=== PATIENT | female | born 1975 | race Two or more races ===

== ENCOUNTER 2025-05-16 08:26 | Outpatient (AMB) | payer OTHER, SELFPAY ==
--- NOTE | 2025-05-16 08:30 | MHC.OFFVIS ---
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 Last co testing was many years ago, last mammogram was more than 3 years ago. 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 [employer] Sexually active: No Sexual orientation: Straight/Heterosexual Gender identity: Female Female Reproductive History Menstrual Date of last menstrual period: 03/26/25 control method: implanted Total pregnancies: 2 Full term: 1 Number of Living Children: 1 Ab spontaneous: 1 Review of Systems Const All systems reviewed & are unremarkable except as noted in HPI and below Card Reports as per HPI Resp Reports as per HPI GI Reports as per HPI and Reports no additional complaints Reports as per HPI Physical Exam Vital Signs: Last Vital Signs BP 144/92 H 05/16/25 08:37 BMI result Body Mass Index 34.3 Const General: cooperative, healthy appearing and comfortable Chest Chest palpation & inspection: normal inspection of the chest and normal palpation of entire chest wall Breast/axilla inspection: normal inspection of the breasts and normal inspection of the axillae Breast/axilla palpation: normal palpation of the breasts, normal palpation of the axillae and no axillary lymphadenopathy Resp Effort & Inspection: normal respiratory effort Auscultation: clear to auscultation bilaterally Percussion: percussion normal Cardio Palpation: normal PMI Rate: regular rate Rhythm: regular rhythm Heart sounds: no murmurs and no rubs Peripheral pulses: Peripheral pulses 2+ throughout GI Inspection: Yes normal to inspection Palpation (GI): Soft to palpation, nontender, no guarding, not rigid and No hepatosplenomegaly present Percussion: Yes normal to percussion Auscultation: normal bowel sounds Rectal Exam - Female: deferred General: Yes bladder normal to palpation External Female Exam: No lesion Speculum Exam - Vagina: normal appearance of the vagina, normal palpation, normal vaginal discharge and not erythematous Speculum Exam - Cervix: normal appearance of the cervix and normal palpation Bimanual exam- vagina & uterus: normal bimanual exam, normal palpation, uterine size normal, bladder normal to palpation, consistency normal and normal palpation Bimanual Exam- Adnexa, other: normal adnexae, no masses and no tenderness Office Procedures Endometrial Biopsy Details: The patient was counseled regarding the indication and benefits of endometrial sampling to rule out endometrial pathology including not limited to endometrial hyperplasia or endometrial cancer and others; The alternatives (Either do nothing vs. hysteroscopy D&C) & the risks were discussed with the patient including but not limited: pain, uterine perforation, bleeding, infection, possible injury to bladder, bowel, ureter, possible need for blood transfusion with all its possible risks. The patient verbalized understanding all questions answered and signed consent. Urine test done in the office was negative The patient was placed into the dorsal lithotomy position; a speculum was inserted in the vagina. Using aseptic technique for the procedure, the cervix was cleansed with Betadine. The anterior lip of the cervix was grasped with a single tooth tenaculum. The uterus was sounded to 7 cm with a 4 mm Pipelle was used. Tissues samples were obtained and placed in formalin, in a patient labeled container and sent to the pathology department. At the end of the procedure, there was minimal bleeding noted The patient tolerated the procedure well and was discharged in good condition with the following instructions: Nothing in the vagina until the bleeding stops. No sex until the bleeding stops, to call if any of the following occurs: fever (>100.4), flu-like symptoms, abdominal pain, heavy bleeding, four smelling vaginal discharge. The patient was instructed to schedule a Follow up appointment in 2 weeks to discuss pathology results of the biopsy and treatment options. This note was generated with a voice recognition program. Some errors may have been overlooked during the review of this note. Sometimes these errors may affect the content or meaning of a given sentence. 06876-Tuximavdvvd Biopsy Results AMB Test Urine AMB Test Urine Negative Last Edit by Gabby Armendariz CMA on 05/16/25 08:56 Assessment & Plan Assessment & Plan (1) Abnormal uterine bleeding (AUB): Code(s): N93.9 - Abnormal uterine and vaginal bleeding, unspecified Category: Medical Plan: UPT done in the office was negative. Screening mammogram, Co testing done, GC and chlamydia taken CBC, TSH, HCG, FSH/LH and pelvic ultrasound ordered. Discussed with the patient the different causes of abnormal bleeding including thyroid disorders, uterine and ovarian pathology, endometrial hyperplasia, carcinoma and other potential causes. Discussed with the patient the work up including CBC (to r/o anemia), TSH, FSH/LH, pelvic Ultrasound, endometrial biopsy to r/o endometrial pathology. EMB done, see procedure note. All questions answered and the patient verbalized understanding. Instructed the patient to schedule an appointment for an endometrial biopsy in 2 weeks. (2) Chest pain: Code(s): R07.9 - Chest pain, unspecified Category: Medical Plan: Recommended the patient to go to [facility]. All questions answered, the patient agreed with the plan Orders: Orders AMB HCG Urine Test Today Z32.02 - Encounter for test, result negative US pelvic and transvaginal Today N93.9 - Abnormal uterine and vaginal bleeding, unspecified MM screening mammo BI Today Z12.31 - Encounter for screening mammogram for malignant neoplasm of breast Complete Blood Count no Diff Today N93.9 - Abnormal uterine and vaginal bleeding, unspecified Lutenizing Hormone Today N93.9 - Abnormal uterine and vaginal bleeding, unspecified HCG Quantitative Today N93.9 - Abnormal uterine and vaginal bleeding, unspecified TSH reflex Free T4 Today N93.9 - Abnormal uterine and vaginal bleeding, unspecified AMB Endometrial Biopsy Today N93.9 - Abnormal uterine and vaginal bleeding, unspecified Follicle Stimulating Hormone Today N93.9 - Abnormal uterine and vaginal bleeding, unspecified Coding Level of Care Code New Pt Level 3 (61758) Procedure Only Diagnoses Abnormal uterine bleeding (AUB) N93.9 Chest pain R07.9 CPT Codes Endometrial Biopsy - CPT: 56575-Hotyiejkovh Biopsy ([id number])
[2025-05-16 08:37] VITALS: BP 144/92; BMI 34.3
--- OUTSIDE RECORDS SUMMARY | 2025-05-16 08:41 | XMS_ITS | Clinical Summary ---
Author Organization [facility] Address [address] [facility] [address] [place] [phone] Phone Care Team Providers Care Cognos Developer Name Role Phone Pcp, Unknown Primary Care Provider Unavailabl e Social History Tobacco Use Types Packs/Day Years Used Date Smoking Tobacco: Never Assessed Education Answer Date Recorded Are you interested in more education? Not on robert e 05/03/2025 Are you concerned about learning? Not on file 05/03/2025 No 05/03/2025 No 05/03/2025 Digital Access Answer Date Recorded No 05/03/2025 No 05/03/2025 Reliable internet access at home? Not on file 05/03/2025 Device with a working camera? Not on file Comments Unknown Sex and Gender Information Value Date Recorded Sex Assigned at Not on file Legal Sex Female 12:55 AM EDT Gender Identity Not on file Sexual Orientation Not on file Plan of Treatment Upcoming Encounters Date Type Department Care Team (Late st Contact Info) Description 05/17/2025 11:20 AM EDT Office Visit [facility] [address] [place] [address] [place] [address] Mihaela Zeng MD [address] [facility], [address] [place] [address] [email or web address] Health Maintenance Due Date Last Done Comments Adult Td,Tdap Booster 1977 LIPID PANEL 1977 DEPRESSION SCREENING 1989 SMOKING Hx and SMOKELESS TOB ACCO SCREENING 1990 HEPATITIS C SCREENING 1995 HIV ONE-TIME SCREENING (18-6 5 YEARS) 1995 PAP SMEAR 1998 MAMMOGRAM 2017 COLOGUARD 2022 COLONOSCOPY 2022 COLORECTAL CANCER SCREENING 2022 FIT TEST 2022 FOBT 2022 SIGMOIDOSCOPY 2022 VIRTUAL COLONOSCOPY 2022 INFLUENZA VACCINE (#1) 2025 COVID-19 VACCINE ( - 2024-2 6 season) 2025 HEPATITIS A VACCINES Aged Out No long er eligible based on patient's age to complete this topic HIB VACCINES Aged Out No longer eligi ble based on patient's age to complete this topic MENINGOCOCCAL VACCINES (ACWY) Aged Out No longer eligible based on patient's age to complete this topic MENINGOCOCCAL VACCINES (B) Aged Out N o longer eligible based on patient's age to complete this topic PNEUMOCOCCAL VACCINES (0-49 years) Aged Out No longer eligible based on patient's age to complete this topic Medical Devices Not on file Insurance Flux [employer] [place] [address] [place] [address] [facility] [address] [place] [address] [place] [place] [address] [place] [address] [place] [address] ACO Care Teams Cognos Developer Relationship Specialty Start Date End Date Pcp, Unknown PCP - General 05/02/25 Additional Source Comments The information contained in this document represents components of the legal health record. It is not the complete legal health record.[facility]
--- OUTSIDE RECORDS SUMMARY | 2025-05-16 08:41 | XMS_ITS | Encounter Summary ---
Author Organization [facility] Address [address] [place] [address] Care Team Providers Care Solar Installer Pv Name Role Phone Evie Garza MD Primary Care Provider [phone] Reason for Visit * Reason Onset Date Comments Vaginal Bleeding 05/02/2025 Encounter Details Date Type Department Care Team (Late st Contact Info) Description 05/02/2025 Telephone Internal Medicine - [place] [address] [place], [place] [phone] Evie Garza MD [address] [place], [place] Social History Tobacco Use Types Packs/Day Years Used Date Smoking Tobacco: Never Smokeless Tobacco: Never Alcohol Use Standard Drinks/Week Comments Never 0 (1 standard drink = 0.6 oz pur e alcohol) Comments No Sex and Gender Information Value Date Recorded Sex Assigned at Female 10/02/2024 10:07 AM EDT Legal Sex Female 12:54 AM EST Gender Identity Female 10/02/2024 10:07 AM EDT Sexual Orientation Straight 10/02/2024 10 :07 AM EDT documented as of this encounter Progress Notes * Chino Grullon - 05/02/2025 12:18 PM EDT Called Patient lvm that she needs to f/u with OBGYN office * Chino Grullon - 05/02/2025 11:40 AM EDT Patient call requires triage: Symptoms patient is presenting: uterine bleeding How long has patient had these symptoms?: over 4 wks For ALL patients calling to schedule any appointment (routine, sick visit, follow up, consult, etc.) in the outpatient setting please ask the following questions: Do you have fever of higher than 101, sore throat with difficulty swallowing or severe shortness ofbreath? no If YES to any of these above symptoms, send a message to triage and do not book. Red dot. If no, an audio or video visit should be booked. Have you had close contact with someone with Coronavirus in the last 14 days? yes Have you traveled abroad? no Have you traveled recently to another state outside of [place], [place], [place], [place], [place], [place], [place]? no o If yes, did you quarantine for 14 days or have a negative covid test? no If yes to any of the above, patient is not to be scheduled in office until after 14 day quarantine or negative covid test. If pain or injury related was it due to an accident at work or from a motor vehicle accident? If yes, date of accident/Injury: No If yes, gather 3rd democrat insurance information Third Alliance Party Information: not applicable PCP: Evie Garza MD Payor: [email or web address] PLAN / Plan: [employer] MEDICAID / Product Type: *No Product type* / documented in this encounter Plan of Treatment Upcoming Encounters Date Type Department Care Team (Late st Contact Info) Description 05/18/2025 3:45 PM EDT [facility] [address] [place] [address] Nidhi Sharma NP [address] [place] [address] 05/25/2025 8:45 AM EDT [facility] [address] [place] [address] Reid Gil NP [address] [place] [address] 10/11/2025 2:30 PM EDT Office Visit Bariatric Surgery - [place] [address] [place] [address] Alin Campos MD [address] [place] [phone] 10/12/2025 8:45 AM EDT Office Visit Internal Medicine - [address] [phone] Reid Gil NP [address] [place] [address] documented as of this encounter Visit Diagnoses Not on filedocumented in this encounter Care Teams Solar Installer Pv Relationship Specialty Start Date End Date Evie Garza MD [address] [place] [address] PCP - General Internal Medicine 09/30/24 documented as of this encounter
--- OUTSIDE RECORDS SUMMARY | 2025-05-16 08:41 | XMS_ITS | Encounter Summary ---
Author Organization [employer] Address [address] [place] [address] Care Team Providers Care Visitor Services Assistant Name Role Phone Evie Garza MD Primary Care Provider [phone] Reason for Visit * Reason Onset Date Comments Vaginal Bleeding 05/02/2025 Encounter Details Date Type Department Care Team (Late st Contact Info) Description 05/02/2025 Telephone Internal Medicine - [facility] [address] [place], [place] [phone] Evie Garza MD [address] [place], [place] Social History Tobacco Use Types Packs/Day [...] as of this encounter Progress Notes * Shelley Jasso, GARRETT - 05/03/2025 8:38 AM EDT noted- I did tell pt this but she insists so I just have to inform you of her situation. 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 she has an obgyne f/up before the end of the month. advised again to go to the ER if having severe / vag.bleed/weakness/light-headedness. she insists she has the right to see her PCP as f/up for bld testing etc. * Shelley Jasso RN - 05/02/2025 1:54 PM EDT Spoke to pt-reports of continued vag. Bleeding since 04/26/25 [facility] ER visit. She states she has reached out to [facility] obgyne clinic and is scheduled for next avail appt in a few mos (nothing earlier). Advised to go back to any ER of choice if vag. bleed persists and is feeling light-headed and weak. RANDAL 04/13/25 * Jerri Esqueda - 05/02/2025 1:35 PM EDT Symptoms patient is presenting: pt c/o continued vaginal bleeding. See previous encounters For ALL patients calling to schedule any appointment (routine, sick visit, follow up, consult, etc.) in the outpatient setting please ask the following questions: Do you have fever of higher than 101, sore throat with difficulty swallowing or severe shortness ofbreath? NO If YES to any of these above symptoms, send a message to triage and do not book. Red dot. If no, an audio or video visit should be booked. Have you had close contact with someone with Coronavirus in the last 14 days? NO Have you traveled abroad? NO Have you traveled recently to another state outside of [place], [place], [place], [place], [place], [place], [place]? NO o If yes, did you quarantine for 14 days or have a negative covid test? NO If yes to any of the above, patient is not to be scheduled in office until after 14 day quarantine or negative covid test. If pain or injury related was it due to an accident at work or from a motor vehicle accident? NO If yes, gather 3rd constitution party insurance information Date of accident/Injury: How long has patient had these symptoms?: on going PCP: Dr Garza Payor: Maribeth documented in this encounter Plan of Treatment Upcoming Encounters Date Type Department Care Team (Late st Contact Info) Description 05/18/2025 3:45 PM EDT [facility] [phone] Nidhi Sharma NP [address] [place] [address] 05/25/2025 8:45 AM EDT Office Visit Internal Medicine - [address] [phone] Reid Gil NP [address] [place] [address] 10/11/2025 2:30 PM EDT Office Visit Bariatric Surgery - [place] [address] [place] [phone] Alin Campos MD [address] [place] [phone] 10/12/2025 8:45 AM EDT Office Visit Internal Medicine - [address] [phone] Reid Gil NP [address] [place] [address] documented as of this encounter Visit Diagnoses Not on filedocumented in this encounter Care Teams Visitor Services Assistant Relationship Specialty Start Date End Date Evie Garza MD [address] [place] [address] PCP - General Internal Medicine 09/30/24 documented as of this encounter
--- OUTSIDE RECORDS SUMMARY | 2025-05-16 08:41 | XMS_ITS | Encounter Summary ---
Author Organization [employer] Address [address] [place] [address] Care Team Providers Care Tire Design Engineer Name Role Phone Evie Garza MD Primary Care Provider [phone] Reason for Visit * Reason Onset Date Comments Vaginal Bleeding 04/27/2025 Encounter Details Date Type Department Care Team (Late st Contact Info) Description 04/27/2025 Telephone Internal Medicine - [facility] [address] [place], [place] [phone] Evie Garza MD [address] [place] [address] Social History Tobacco Use Types Packs/Day Years [...] as of this encounter Progress Notes * Vicenta Bishop RN - 04/27/2025 8:49 AM EDT Message forwarded to CORPORATE STAFF ACCOUNTANT triage * Damaris Siddiqui - 04/27/2025 8:37 AM EDT Patient call requires triage: Symptoms patient is presenting: went to the [facility] er 04/26 pt has been bleeding vaginally for 4 weeks. She was advised to go to the ER where they referred her to an obgyn. However they do not have any availability anytime soon and pt is still actively bleeding and is requesting a treatment from provider here, wants to know what to do next. How long has patient had these symptoms?: 4 weeks For ALL patients calling to schedule any [...] with Coronavirus in the last 14 days? no Have you traveled abroad? no Have you traveled recently to another state outside of [place], [place], [place], [place], [place], [place], [place]? no o If yes, did you quarantine [...] of accident/Injury: No If yes, gather 3rd constitution party insurance information [employer] Party Information: not applicable PCP: Evie Garza MD Payor: [facility] HEALTH PLAN / Plan: [facility] MEDICAID / Product Type: *No Product type* / documented in this encounter Plan of Treatment Upcoming Encounters Date Type Department Care Team (Late st Contact Info) Description 05/18/2025 3:45 PM EDT Office Visit Internal Medicine - [address] [phone] Nidhi Sharma NP [address] [place] [address] 05/25/2025 8:45 AM EDT Office Visit Internal Medicine - [facility] [address] [place] [address] Reid Gil NP [address] [place] [address] 10/11/2025 2:30 PM EDT Office Visit Bariatric Surgery - [place] [address] [place] [phone] Alin Campos MD [address] [place] [phone] 10/12/2025 8:45 AM EDT Office Visit [facility] [phone] Reid Gil NP [address] [place] [phone] documented as of this encounter Visit Diagnoses Not on filedocumented in this encounter Care Teams Tire Design Engineer Relationship Specialty Start Date End Date Evie Garza MD [address] [place] [address] PCP - General Internal Medicine 09/30/24 documented as of this encounter
--- OUTSIDE RECORDS SUMMARY | 2025-05-16 08:41 | XMS_ITS | Clinical Summary ---
Author Organization [facility] Address [address] [place] [address] Phone Care Team Providers Care Diffuser Operator Name Role Phone Evie Garza MD Primary Care Provider [phone] Allergies Active Allergy Reactions Criticality Noted Date Comments Iodinated Contrast Media Anaphylaxis High 09/30/2024 Patient reports throat closing needing shot in thigh (after MRI ) Medications EPINEPHrine (EPIPEN) 0.3 mg/0.3 mL injection ADMINISTER 0.3 MG IN THE MUSCLE 1 TIME 4 Active fluticasone propionate (FLONASE) 50 mcg/actuation nasal spray TAKE 2 SPRAYS (INTRANASAL) DIRECTED FOR 90 DAYS TWICE A DAY FOR 5 DAYS THEN DAILY AFTER 5 Active ibuprofen (ADVIL,MOTRIN) 800 mg tablet TAKE 1 TABLET (ORAL) 3 TIMES PER DAY ( CUANDO SEA NECESARIO - PAIN) FOR 7 DAYS TAKE WITH FOOD Active cetirizine (ZyrTEC) 10 mg tabletIndication s:Cough, unspecified type Take 1 tablet (10 mg total) by mouth 1 (one) time each day. 30 each 2 5 07/12/20 25 Active neomycin-polymyx in-hydrocortison e (CORTISPORIN) 3.5-10,000-1 mg/mL-unit/mL-% otic suspensionIndica tions:Acute otitis externa of right ear, unspecified type Administer 4 drops into the right ear 4 (four) times a day for 10 days. 10 mL 5 04/18/20 25 ketorolac (TORADOL) 10 mg tablet Take 1 tablet (10 mg total) by mouth every 6 (six) hours if needed for moderate pain for up to 5 days. 20 tablet 05/01/20 25 Active Problems Problem Noted Date Diagnosed Date Prediabetes 04/13/2025 Encounters Date Type Department Care Team Description 05/02/2025 Telephone Internal Medicine [address] [phone] Evie Garza MD 05/02/2025 Telephone Internal Medicine - [address] [phone] Evie Garza MD 04/27/2025 Telephone Internal Medicine [address] [phone] Evie Garza MD 04/27/2025 Telephone Internal Medicine [address] [phone] Evie Garza MD 04/26/2025 2:47 AM EDT - 04/26/2025 2:49 AM EDT Emergency [facility] Emergency [address] [place] [address] Abnormal uterine bleeding (Primary Dx); Right tubo-ovarian mass Discharge Disposition: Home or Self Care 04/25/2025 Telephone Internal Medicine [address] [phone] Evie Garza MD 04/13/2025 8:45 AM EDT Office Visit Internal Medicine [address] [phone] Reid Gil NP Cough, unspecified type (Primary Dx); Nonintractable headache, unspecified chronicity pattern, unspecified headache type; Abnormal menses; Class 2 obesity in adult, unspecified BMI, unspecified obesity type, unspecified whether serious comorbidity present; Elevated blood sugar; Hypomagnesemia 04/08/2025 Telephone Orthopedics [address] [phone] Vinay Muñoz PA 04/06/2025 10:45 AM EDT Office Visit Walk-In Clinic - [address] [place] [phone] Stephon Moreira NP Upper respiratory symptom (Primary Dx); Acute otitis externa of right ear, unspecified type 04/06/2025 Telephone Internal Medicine - [address] [place] [phone] Evie Garza MD from Last 3 Months Immunizations Immunization Administration Dates Next Due Hepatitis B (Iagjgxm-J-Vahta , Recombivax HB-Adult) 19yo and older 02/11/2018 Influenza trivalent, with pr eservative (Fluzone; Afluria) 6mo and older 12/30/2021 Social History Tobacco Use Types Packs/Day Years Used Date Smoking Tobacco: Never Smokeless Tobacco: Never Tobacco Cessation:Counseling Given: Not Answered Alcohol Use Standard Drinks/Week Comments Never 0 (1 standard drink = 0.6 oz pur e alcohol) Comments No Sex and Gender Information Value Date Recorded Sex Assigned at Female 10/02/2024 10:07 AM EDT Legal Sex Female 12:54 AM EST Gender Identity Female 10/02/2024 10:07 AM EDT Sexual Orientation Straight 10/02/2024 10 :07 AM EDT Obstetrics History Last Filed Vital Signs Vital Sign Reading Time Taken Comments Blood Pressure 159/103 04/25/2025 9:28 PM EDT Pulse 103 04/25/2025 9:28 PM EDT Temperature 36.7 C (98.1 F) 04/25/2025 9:28 PM EDT Respiratory Rate 18 04/25/2025 9:28 PM EDT Oxygen Saturation 100% 04/25/2025 9:28 PM EDT Inhaled Oxygen Concentration - - Weight 90.7 kg (200 lb) 04/25/2025 9:28 PM EDT Height 160 cm (5' 3 ) 04/25/2025 9:28 PM EDT Body Mass Index 35.43 04/25/2025 9:28 PM EDT Plan of Treatment Upcoming Encounters Date Type Department Care Team (Late st Contact Info) Description 05/18/2025 3:45 PM EDT Office Visit Internal Medicine - [address] [phone] Nidhi Sharma NP [address] [place] [address] 05/25/2025 8:45 AM EDT Office Visit Internal Medicine - [address] [phone] Reid Gil NP [address] [place] [phone] 10/11/2025 2:30 PM EDT Office Visit Bariatric Surgery [place] [address] [facility] [address] [place] [phone] Alin Campos MD [address] [place] [phone] 10/12/2025 8:45 AM EDT Office Visit Internal Medicine - [address] [phone] Reid Gil NP [address] [place] [phone] Health Maintenance Due Date Last Done Comments Breast Cancer Screening 1977 Colorectal Cancer Screening: Colonoscopy 1977 DTaP,Tdap,and Td Vaccines (1 - Tdap) 1996 Cervical Cancer Screening: P ap Smear 1998 Hepatitis B Vaccines (2 of 3 - 19+ 3-dose series) 03/11/2018 02/11/2018 Cholesterol Screening (Lipid Panel) 02/15/2024 HIV Screening 02/15/2024 Hepatitis C Screening 02/15/2024 Social Influencers of Health Screening 02/15/2024 Depression Screening 07/26/2024 COVID-19 Vaccine (4 - 2024-2 6 season) 2025 09/01/2021, 12/14/2020, 11/16/2020 Influenza Vaccine (#1) 2025 12/30/2021 Hypertension/CHF/CAD Annual BMP Blood Test 04/25/2026 04/25/2025, 09/30/2024 RSV Immunization Adult Patients (1 - 1-dose 75+ series) 2052 HIB Vaccines Aged Out No longer eligi ble based on patient's age to complete this topic HPV Vaccines Aged Out No longer eligi ble based on patient's age to complete this topic Hepatitis A Vaccines Aged Out No long er eligible based on patient's age to complete this topic IPV Vaccines Aged Out No longer eligi ble based on patient's age to complete this topic MMR Vaccines Aged Out No longer eligi ble based on patient's age to complete this topic Meningococcal ACWY Vaccine Aged Out N o longer eligible based on patient's age to complete this topic Meningococcal B Vaccine Aged Out No l onger eligible based on patient's age to complete this topic Pneumococcal Vaccine: Pediatrics (0 to 5 Years) and At-Risk Patients (6 to 49 Years) Aged Out No longer eligible b ased on patient's age to complete this topic RSV Immunization Patients Under 20 months Aged Out No longer eligible b ased on patient's age to complete this topic Varicella Vaccines Aged Out No longer eligible based on patient's age to complete this topic Procedures Procedure Name Priority Date/Time Associated Diagnosis Comments ECG 12-LEAD STAT 04/26/2025 12:54 AM EDT US PELVIS NON OB COMPLETE STAT 04/26/2025 12:29 AM EDT ECG ANNOTATED 04/26/2025 HCG, SERUM, QUALITATIVE STAT 04/25/2025 11:06 PM EDT CBC WITH AUTO DIFFERENTIAL STAT 04/25/2025 11:06 PM EDT B-TYPE NATRIURETIC PEPTIDE STAT 04/25/2025 11:06 PM EDT MAGNESIUM STAT 04/25/2025 11:06 PM EDT LIPASE STAT 04/25/2025 11:06 PM EDT COMPREHENSIVE METABOLIC PANEL STAT 04/25/2025 11:06 PM EDT CBC AND DIFFERENTIAL STAT 04/25/2025 11:06 PM EDT TROPONIN I HIGH SENSITIVITY Timed 04/25/2025 11:06 PM EDT TYPE AND SCREEN STAT 04/25/2025 11:06 PM EDT XR CHEST 2 VIEWS STAT 04/25/2025 10:1 8 PM EDT ECG 12-LEAD STAT 04/25/2025 9:41 PM EDT CBC WITH AUTO DIFFERENTIAL Routine 04/13/2025 9:32 AM EDT Abnormal menses CBC AND DIFFERENTIAL Routine 04/13/2025 9:32 AM EDT Abnormal menses IRON AND TIBC Routine 04/13/2025 9:32 AM EDT Abnormal menses THYROID STIMULATING HORMONE WITH REFLEX TO FREE T4 AND FREE T3 Routine 04/13/2025 9:32 AM EDT Abnormal menses HEMOGLOBIN A1C Routine 04/13/2025 9:32 AM EDT Elevated blood sugar MAGNESIUM Routine 04/13/2025 9:32 AM EDT Hypomagnesemia VITAMIN B12 Routine 04/13/2025 9:32 AM EDT Abnormal menses POC RAPID [id number], MOLECULAR Routine 04/06/2025 10:55 AM EDT Upper respiratory symptom from Last 3 Months Results * ECG 12 lead (04/26/2025 12:54 AM EDT) Only the most recent of2 resultswithin the time period is included. Ventricular Rate ECG 87 BPM GEMUSE Atrial Rate 87 BPM GEMUSE P-R Interval 190 ms GEMUSE QRS Duration 86 ms GEMUSE Q-T Interval 376 ms GEMUSE QTc 452 ms GEMUSE P Wave [place] 51 degrees GEMUSE R [place] -8 degrees GEMUSE T [place] 48 degrees GEMUSE ECG Interpretation Normal sinus rhythm Anterior infarct (cited on or before 15-OCT-2023) Abnormal ECG When compared with ECG of 25-APR-2025 21:41, (unconfirmed) No significant change was found Confirmed by CASIMIRO ZHONG ([id number]) on 04/26/2025 5:52:02 PM GEMUSE 04/26/2025 12:5 4 AM EDT 04/26/2025 5:52 PM EDT us Stephon MINAYA ECG ORDERABLES Final Resul t GEMUSE * US Pelvis Non OB Complete (04/26/2025 12:29 AM EDT) Anatomical Region Laterality Modality Body, Pelvis Ultrasound 04/26/2025 1:29 AM EDT Impressions 04/26/2025 1:29 AM EDT 1. Left uterine fibroid. Uterus otherwise unremarkable. 2. Unremarkable right ovary without torsion. 3. Right adnexal indeterminate mass. Consider further characterization with nonemergent pelvic MRI. This document has been electronically signed by: Jennifer Dean MD on 04/26/2025 01:29:54 Narrative 04/26/2025 1:29 AM EDT INDICATION: pain US pelvis transabdominal with Doppler Comparison: CT/KO/AK/SR - CT ABD PEL WO CONTRAST - 09/30/24 10:37 EST Findings: Transabdominal scanning performed with Doppler. Patient declined transvaginal imaging. Anteverted uterus is 9.1 cm length. 2.8 cm left posterior subserosal uterine fibroid. Endometrium 5 mm thickness. The right ovary measures 3.8 x 4.0 x 3.1 cm. Left ovary not identified. Normal color Doppler with arterial/venous spectral tracing of right ovary. In the right adnexa, distinct from the imaged ovary, there is a centrally hypoechoic heterogeneous 5.4 x 3.0 x 4.9 cm lesion. No ascites. Procedure Note Jnenifer Dean MD - 04/26/2025 INDICATION: pain US pelvis transabdominal with Doppler Comparison: CT/KO/AK/SR - CT ABD PEL WO CONTRAST - 09/30/24 10:37 EST Findings: Transabdominal scanning performed with Doppler. Patient declined transvaginal imaging. Anteverted uterus is 9.1 cm length. 2.8 cm left posterior subserosal uterine fibroid. Endometrium 5 mm thickness. The right ovary measures 3.8 x 4.0 x 3.1 cm. Left ovary not identified. Normal color Doppler with arterial/venous spectral tracing of rightovary. In the right adnexa, distinct from the imaged ovary, there is acentrally hypoechoic heterogeneous 5.4 x 3.0 x 4.9 cm lesion. No ascites. IMPRESSION: 1. Left uterine fibroid. Uterus otherwise unremarkable. 2. Unremarkable right ovary without torsion. 3. Right adnexal indeterminate mass. Consider further characterization with nonemergent pelvic MRI. This document has been electronically signed by: Jennifer Thornton MD on 04/26/2025 01:29:54 us Stephon MINAYA IMG US PROCEDURES Final Res ult * ECG-Annotated (04/26/2025) us Provider Onbase ECG ORDERABLES Final Result * Troponin I high sensitivity (04/25/2025 11:06 PM EDT) High Sensitivity Troponin I 3 <=54 ng/L LAB CHEMISTRY METHOD 04/25/2025 11:47 PM EDT [facility] Blood Venous blood specimen / Unknown Venipuncture / Unknown 04/25/2025 11:06 PM EDT 04/25/2025 11:15 PM EDT Narrative [facility] - 04/25/2025 11:47 PM EDT High levels of biotin in samples may falsely decrease hsTroponin values. Use caution when interpreting hsTroponin results in patients taking biotin who exhibit renal impairment (eGFR <60) or in patients taking more than 20 mg/day of biotin. us Stephon MINAYA LAB BLOOD ORDERABLES Final Result [facility] [address] [place] [address], [place] [phone] * (ABNORMAL) CBC auto differential (04/25/2025 11:06 PM EDT) Only the most recent of2 resultswithin the time period is included. WBC 10.6 4.8 - 10.8 K/mcL LAB HEMETOLOGY METHOD 04/25/2025 11:24 PM EDT [facility] RBC 4.40 3.80 - 4.80 M/mcL LAB HEMETOLOGY METHOD 04/25/2025 11:24 PM EDT [facility] Hemoglobin 12.1 11.5 - 16.0 g/dL LAB HEMETOLOGY METHOD 04/25/2025 11:24 PM EDT [facility] Hematocrit 36.6 35.0 - 47.0 % LAB HEMETOLOGY METHOD 04/25/2025 11:24 PM EDT [facility] MCV 84.1 79.0 - 98.0 FL LAB HEMETOLOGY METHOD 04/25/2025 11:24 PM EDT [facility] MCH 27.8 27.0 - 32.0 pcg LAB HEMETOLOGY METHOD 04/25/2025 11:24 PM EDT [facility] MCHC 33.1 32.0 - 37.0 g/dL LAB HEMETOLOGY METHOD 04/25/2025 11:24 PM EDT [facility] RDW 14.3 11.0 - 15.0 % LAB HEMETOLOGY METHOD 04/25/2025 11:24 PM EDT [facility] Platelets 193 130 - 400 K/mcL LAB HEMETOLOGY [facility]/25[facility]2025 [facility] MPV 12.8(H) 7.0 - 11.0 FL LAB HEMETOLOGY METHOD 04/25/2025 11:24 PM [facility] NRBC 0.0 <1.0 % LAB HEMETOLOGY METHOD 04/25/2025 11:24 PM [facility] NRBC Absolute 0.00 <0.10 K/[facility] LAB HEMETOLOGY METHOD 04/25/2025 11:24 PM [facility] Neutrophils Relative 62.8 % LAB HEMETOLOGY METHOD 04/25/2025 11:24 PM [facility] Lymphocytes Relative 27.7 % LAB HEMETOLOGY METHOD 04/25/2025 11:24 PM [facility] Monocytes Relative 7.2 % LAB HEMETOLOGY METHOD 04/25/2025 11:24 PM [facility] Eosinophils Relative 1.7 % LAB HEMETOLOGY METHOD 04/25/2025 11:24 PM [facility] Basophils Relative 0.3 % LAB HEMETOLOGY METHOD 04/25/2025 11:24 PM [facility] Immature Granulocytes Relative 0.3 % LAB HEMETOLOGY METHOD 04/25/2025 11:24 PM [facility] Neutrophils Absolute 6.67 1.50 - 7.00 K/[facility] LAB HEMETOLOGY METHOD 04/25/2025 11:24 PM [facility] Lymphocytes Absolute 2.94 1.00 - 5.00 K/[facility] LAB HEMETOLOGY METHOD 04/25/2025 11:24 PM [facility] Monocytes Absolute 0.76 0.20 - 1.00 K/mcL LAB HEMETOLOGY METHOD 04/25/2025 11:24 PM [facility] Eosinophils Absolute 0.18 0.00 - 0.50 K/[facility] LAB HEMETOLOGY METHOD 04/25/2025 11:24 PM EDT [facility] Basophils Absolute 0.03 0.00 - 0.20 K/[facility] LAB HEMETOLOGY METHOD 04/25/2025 11:24 PM EDT [facility] Immature Granulocytes Absolute 0.03 0.00 - 0.03 /[facility] LAB HEMETOLOGY METHOD 04/25/2025 11:24 PM EDT [facility] Blood Venous blood specimen / Unknown Venipuncture / Unknown 04/25/2025 11:06 PM EDT 04/25/2025 11:15 PM EDT Stephon MINAYA LAB BLOOD ORDERABLES Final Result [facility] [address] [place] [address], [place] [phone] * Type and screen (04/25/2025 11:06 PM EDT) ABO Group O 04/26/2025 12:18 AM EDT [facility] Rh Type Positive 04/26/2025 12:18 AM EDT [facility] Antibody Screen Negative 04/26/2025 12:18 AM EDT [facility] Blood Venous blood specimen / Unknown Venipuncture / Unknown 04/25/2025 11:06 PM EDT 04/25/2025 11:15 PM EDT Stephon MINAYA LAB BLOOD BANK TEST ORDERAB LES Final Result [facility] [address] [place] [address], [place] [phone] * hCG, serum, qualitative (04/25/2025 11:06 PM EDT) hCG Qual Negative Negative 04/25/2025 11:36 PM EDT [facility] Blood Venous blood specimen / Unknown Venipuncture / Unknown 04/25/2025 11:06 PM EDT 04/25/2025 11:15 PM EDT Stephon MINAYA LAB BLOOD ORDERABLES Final Result [facility] [address] [place] [address], [place] [phone] * B-type natriuretic peptide (04/25/2025 11:06 PM EDT) [facility] BNP 16 <=100 pcg/mL LAB CHEMISTRY METHOD 04/25/2025 11:55 PM EDT [facility] Blood Venous blood specimen / Unknown Venipuncture / Unknown 04/25/2025 11:06 PM EDT 04/25/2025 11:15 PM EDT Stephon MINAYA LAB BLOOD ORDERABLES Final Result Performing Organization Address [facility]/ZIP Co de Phone Number [facility] [address] [place] [address], [place] [phone] * Magnesium (04/25/2025 11:06 PM EDT) Only the most recent of2 resultswithin the time period is included. [facility] Magnesium 1.9 1.9 - 2.6 mg/dL LAB CHEMISTRY METHOD 04/25/2025 11:42 PM EDT [facility] Blood Venous blood specimen / Unknown Venipuncture / Unknown 04/25/2025 11:06 PM EDT 04/25/2025 11:15 PM EDT Stephon MINAYA LAB BLOOD ORDERABLES Final Result [facility] [address] [place] [address], [place] [phone] * Lipase (04/25/2025 11:06 PM EDT) [facility] Lipase 52 13 - 75 unit/L LAB CHEMISTRY METHOD 04/25/2025 11:42 PM EDT [facility] Blood Venous blood specimen / Unknown Venipuncture / Unknown 04/25/2025 11:06 PM EDT 04/25/2025 11:15 PM EDT Stephon MINAYA LAB BLOOD ORDERABLES Final Result [facility] [address] [place] [address], [place] [phone] * (ABNORMAL) Comprehensive metabolic panel (04/25/2025 11:06 PM EDT) [facility] Sodium 138 133 - 145 mmol/L LAB CHEMISTRY METHOD 04/25/2025 11:42 PM [facility] Potassium 3.7 3.5 - 5.5 mmol/L LAB CHEMISTRY METHOD 04/25/2025 11:42 PM [facility] Chloride 107 96 - 110 mmol/L LAB CHEMISTRY METHOD 04/25/2025 11:42 PM [facility] CO2 24 21 - 32 mmol/L LAB CHEMISTRY METHOD 04/25/2025 11:42 PM [facility] Anion Gap 7 3 - 11 LAB CHEMISTRY METHOD 04/25/2025 11:42 PM [facility] Glucose 122(H) 70 - 100 mg/dL LAB CHEMISTRY METHOD 04/25/2025 11:42 PM [facility] BUN 10 5 - 25 mg/dL LAB CHEMISTRY METHOD 04/25/2025 11:42 PM [facility] Creatinine 0.81 0.50 - 1.10 mg/dL LAB CHEMISTRY METHOD 04/25/2025 11:42 PM [facility] eGFR 90 >=60 mL/min/1. 73m2 LAB CHEMISTRY METHOD 04/25/2025 11:42 PM [facility] Comment:Calculation based on the Chronic Kidney Disease Epidemiology Collaboration (CKD-EPI) equation refit without adjustment for race. BUN/Creatinine Ratio 12.3 LAB CHEMISTRY METHOD 04/25/2025 11:42 PM [facility] Calcium 9.8 8.5 - 10.5 mg/dL LAB CHEMISTRY METHOD 04/25/2025 11:42 PM [facility] AST (SGOT) 29 10 - 42 unit/L LAB CHEMISTRY METHOD 04/25/2025 11:42 PM [facility] ALT (SGPT) 40 10 - 60 unit/L LAB CHEMISTRY METHOD 04/25/2025 11:42 PM [facility] Alkaline Phosphatase 97 42 - 121 unit/L LAB CHEMISTRY METHOD 04/25/2025 11:42 PM [facility] Total Protein 7.6 6.0 - 8.0 g/dL LAB CHEMISTRY METHOD 04/25/2025 11:42 PM [facility] Albumin 3.8 3.2 - 5.0 g/dL LAB CHEMISTRY METHOD 04/25/2025 11:42 PM [facility] Total Bilirubin 0.2 0.0 - 1.4 mg/dL LAB CHEMISTRY METHOD 04/25/2025 11:42 PM [facility] Blood Venous blood specimen / Unknown Venipuncture / Unknown 04/25/2025 11:06 PM EDT 04/25/2025 11:15 PM EDT us Stephon MINAYA LAB BLOOD ORDERABLES Final Result [facility] [address] [place] [address], [place] [phone] * XR Chest 2 Views (04/25/2025 10:18 PM EDT) Anatomical Region Laterality Modality Body Radiographic Tracey ging 04/26/2025 8:10 AM EDT Impressions 04/26/2025 8:13 AM EDT No acute pulmonary disease. The cardiac silhouette is at the upper limits of normal. No change since 09/30/2024. Code [address]74 CT Teleradiology -------- FINAL REPORT -------- Dictated By: Aaron Miller Dictated Date: 04/26/2025 08:10 ET Assigned Physician: Aaron Miller Reviewed and Electronically Signed By: Aaron Miller Signed Date: 04/26/2025 08:13 ET Workstation ID: [id number] Transcribed By: Self Edit Transcribed Date: 04/26/2025 08:10 ET Narrative 04/26/2025 8:13 AM EDT HISTORY: The patient is a 50-year-old female with chest pain. FINDINGS: PA and lateral radiographs of the chest demonstrate normal appearance of the bony structures. The cardiac silhouette remains at the upper limits of normal, unchanged since the prior study performed 09/30/2024. The mediastinal contour is within normal limits. The lungs and costophrenic angles are clear. Procedure Note Aaron Miller MD - 04/26/2025 HISTORY: The patient is a 50-year-old female with chest pain. FINDINGS: PA and lateral radiographs of the chest demonstrate normalappearance of the bony structures. The cardiac silhouette remains at theupper limits of normal, unchanged since the prior study performed09/30/2024. The mediastinal contour is within normal limits. The lungs andcostophrenic angles are clear. IMPRESSION: No acute pulmonary disease. The cardiac silhouette is at the upper limitsof normal. No change since 09/30/2024. Code 21802 CT Teleradiology -------- FINAL REPORT -------- Dictated By: Aaron Miller Dictated Date: 04/26/2025 08:10 ET Assigned Physician: Aaron Miller Reviewed and Electronically Signed By: Aaron Miller Signed Date: 04/26/2025 08:13 ET Workstation ID: [id number] Transcribed By: Self Edit Transcribed Date: 04/26/2025 08:10 ET us Stephon MINAYA IMG XR PROCEDURES Final Res ult * Thyroid stimulating hormone with reflex to free t4 and free t3 (04/13/2025 9:32 AM EDT) Pathologist [facility] TSH 2.52 0.40 - 4.00 mcIU/mL LAB CHEMISTRY METHOD 04/13/2025 12:44 PM EDT [facility] Blood Venous blood specimen / Unknown Venipuncture / Unknown 04/13/2025 9:32 AM EDT 04/13/2025 9:32 AM EDT Reid Gil NP LAB BLOOD ORDERABLES Final Res ult Performing Organization Address City/[facility]/ZIP Co de Phone Number [facility] [address] [place] [address], * Iron and TIBC (04/13/2025 9:32 AM EDT) Pathologist [facility] Iron 70 40 - 150 mcg/dL LAB CHEMISTRY METHOD 04/13/2025 12:39 PM EDT [facility] TIBC 421 250 - 450 mcg/dL LAB CHEMISTRY METHOD 04/13/2025 12:39 PM EDT [facility] Iron Saturation 17 15 - 50 % LAB CHEMISTRY METHOD 04/13/2025 12:39 PM EDT [facility] Blood Venous blood specimen / Unknown Venipuncture / Unknown 04/13/2025 9:32 AM EDT 04/13/2025 9:32 AM EDT Reid Gil NP LAB BLOOD ORDERABLES Final Res ult [facility] [address] [place] [address], [place] [phone] * Hemoglobin A1c (04/13/2025 9:32 AM EDT) [facility] Hemoglobin A1C 6.2 <6.5 % LAB CHEMISTRY METHOD 04/13/2025 1:32 PM EDT [facility] Mean Bld Glu Estim. 131 mg/dL LAB CHEMISTRY METHOD 04/13/2025 1:32 PM EDT [facility] Blood Venous blood specimen / Unknown Venipuncture / Unknown 04/13/2025 9:32 AM EDT 04/13/2025 9:32 AM EDT us Reid Gil NP LAB BLOOD ORDERABLES Final Res ult [facility] [address] [place] [address], [place] [phone] * Vitamin B12 (04/13/2025 9:32 AM EDT) [facility] Vitamin B-12 534 250 - 900 pcg/mL LAB CHEMISTRY METHOD 04/13/2025 12:39 PM EDT [facility] Blood Venous blood specimen / Unknown Venipuncture / Unknown 04/13/2025 9:32 AM EDT 04/13/2025 9:32 AM EDT Reid Gil NP LAB BLOOD ORDERABLES Final Res ult [facility] [address] [place] [address], [place] [phone] * Poc Rapid [id number], MOLECULAR (04/06/2025 10:55 AM EDT) [facility] COVID-19/SARS- COV-2 Rapid POC Negative Negative Swab Nasopharyngeal structure / Unknown 04/06/2025 10:55 AM EDT Stephon Moreira NP POINT OF CARE TEST ENTER/EDIT ORDERABLES Final Result from Last 3 Months Insurance [facility] Care Teams Diffuser Operator Relationship Specialty Start Date End Date Evie Garza MD [address] [place] [phone] PCP - General Internal Medicine 09/30/24
--- OUTSIDE RECORDS SUMMARY | 2025-05-16 08:41 | XMS_ITS | Encounter Summary ---
Author Organization [facility] Address [address] [place] [address] Care Team Providers Care Rating Officer Name Role Phone Evie Garza MD Primary Care Provider [phone] Reason for Referral * Consultation (Routine) - Closed Specialty Diagnoses / Procedures Referred By Contact Referred To Contact Obstetrics and Gynecology Diagnoses Screening due Benjamín Tipton MD [address] [place] [phone] Phone: tel: fax: [facility] [address] [place] [address] [place] [address] Phone: tel: fax: Referral ID Status Reason Start Date Expiration Date V isits Requested Visits Authorized [id number] Closed Specialty Services Required 05/11/2025 05/11/2026 1 1 Reason for Visit * Reason Onset Date Comments information needed 04/27/2025 Encounter Details Date Type Department Care Team ([facility] st Contact Info) Description 04/27/2025 Telephone Internal Medicine - [facility] [address] [place] [address] Evie Garza MD [address] [place] [address] Social History Tobacco Use Types Packs/Day Years [...] as of this encounter Progress Notes * Shaniqua Dominguez MA - 05/11/2025 9:52 AM EDT Pt notified * Benjamín Tipton MD - 05/11/2025 9:13 AM EDT signed * Vee Holland LPN - 04/27/2025 1:26 PM EDT Spoke with pt she wanted ED notes/labs/xray faxed to [facility]. Everything requested faxed to [phone] Also referral requested and sent to dr. Tipton since he will be seeing pt on Monday 04/30 * Kaitlin Izquierdo - 04/27/2025 12:17 PM EDT [facility] [address] [facility] [address] [facility] [address] Pt states they need all pt medical records, labs, xray, and recent ER notes etc so they can schedule an appointment for the patient please fax to [phone] documented in this encounter Plan of Treatment Upcoming Encounters Date Type Department Care Team (Late st Contact Info) Description 05/18/2025 3:45 PM EDT Office Visit Internal Medicine - [address] [phone] Nidhi Sharma NP [address] [place] [address] 05/25/2025 8:45 AM EDT [facility] [phone] Reid Gil NP [address] [place] [address] 10/11/2025 2:30 PM EDT Office Visit Bariatric Surgery - [place] [address] [facility] [address] [place] [phone] Alin Campos MD [address] [place] [phone] 10/12/2025 8:45 AM EDT Office Visit Internal Medicine - [address] [phone] Reid Gil NP [address] [place] [phone] Scheduled Referrals Name Type Priority Associated Diagnoses Order Schedule Ambulatory referral to Obstetrics / Gynecology Outpatient Referral Routine Screening due 1 Occurrences starting 05/11/2025 until 04/27/2026 documented as of this encounter Visit Diagnoses Diagnosis Screening due- Primary documented in this encounter Care Teams Rating Officer Relationship Specialty Start Date End Date Evie Garza MD [address] [place] [address] PCP - General Internal Medicine 09/30/24 documented as of this encounter
== END 2025-05-16 09:26 | disposition home or self-care (01) ==
LOC: HO.HWS 08:26
PROVIDERS: Visit Provider Obstetrics & Gynecology
DX: R07.9 Chest pain, unspecified (principal); N93.9 Abnormal uterine and vaginal bleeding, unspecified; Z32.02 Encounter for pregnancy test, result negative
CPT/HCPCS: 58100; 99203

== ENCOUNTER 2025-05-16 08:26 | Outpatient (REF) | payer OTHER, SELFPAY ==
[2025-05-16 17:48] LABS: CT PCR NOT DETECTED (Not Detect.); NG PCR NOT DETECTED (Not Detect.)
== END 2025-05-16 08:27 | disposition home or self-care (01) ==
LOC: HO.LNP 08:26
PROVIDERS: Visit Provider Obstetrics & Gynecology
DX: N93.9 Abnormal uterine and vaginal bleeding, unspecified (principal); R07.9 Chest pain, unspecified; Z32.02 Encounter for pregnancy test, result negative; Z20.2 Contact with and (suspected) exposure to infections with a predominantly sexual mode of transmission
CPT/HCPCS: 36415; 58100; 81025; 83001; 83002; 84443; 84702; 85027; 87491; 87591; 87626; 88175; 88305; 99202

== ENCOUNTER 2025-05-16 09:35 | Outpatient (REF) | payer OTHER, SELFPAY ==
[2025-05-16 11:15] LABS: Hematocrit 39.3 % (37.0-47.0); Hemoglobin 13.0 g/dl (12.0-16.0); Mean Corpuscular HGB Conc 33.1 g/dl (31.0-35.0); Mean Corpuscular Hemoglobin 27.8 pg (27.0-33.0); Mean Corpuscular Volume 84.2 fL (80.0-98.0); NRBC Abs Auto 0.000 X10*3/uL (0.0-0.012); NRBC Pct Auto 0.0 /100WBC (0.0-0.2); PLT CLUMP 1; Red Blood Count 4.67 X10*6/uL (4.20-5.50)
[2025-05-16 11:34] LABS: Platelet Count 171 X10*3/uL (160-400); White Blood Count 8.7 X10*3/uL (4.8-10.8)
[2025-05-17 04:44] LABS: Follicle Stimulating Hormone 9.4 mIU/mL
== END 2025-05-16 09:36 | disposition home or self-care (01) ==
LOC: HO.LAB 09:35
PROVIDERS: Visit Provider Obstetrics & Gynecology
DX: Z13.89 Encounter for screening for other disorder (principal)
CPT/HCPCS: 36415; 83001; 83002; 84443; 84702; 85027

== ENCOUNTER 2025-05-16 09:55 | Emergency (ER) | payer OTHER, SELFPAY ==
--- NOTE | 2025-05-16 | ECG_ITS ---
Test Reason : cp Blood Pressure : */* mmHG Vent. Rate : 84 BPM Atrial Rate : 84 BPM P-R Int : 184 ms QRS Dur : 80 ms QT Int : 374 ms P-R-T Axes : 35 -13 55 degrees QTcB Int : 441 ms Normal sinus rhythm Septal infarct , age undetermined Abnormal ECG No previous ECGs available Referred By: Generic ED Physician Electronically Signed By: BARNEY WILKERSON MD
--- NOTE | ~2025-05-16 | XR_ITS ---
EXAMINATION: XR CHEST CLINICAL INFORMATION: chest pain COMPARISON: None available. TECHNIQUE: 2 views of the chest were obtained. FINDINGS: The cardiac, hilar, and mediastinal contours are normal. The lungs are clear bilaterally. There is no pneumothorax or pleural effusion. There is no focal osseous or soft tissue abnormality. XR/XR chest 2V IMPRESSION: No active pulmonary disease. Electronically signed by: Philip Lyons MD 05/16/2025 11:29 AM EDT
[2025-05-16 10:11] VITALS: BP 145/70; PULSE 86; RESP 20; TEMP 37; O2SAT 98; BMI 36.4
--- NOTE | 2025-05-16 10:12 | ED_ITS ---
HPI - General Adult General Chief complaint: Chest Pain Stated complaint: CP, vaginal bleeding Time Seen by Provider: 05/16/25 10:57 Source: patient Mode of arrival: ambulatory Limitations: no limitations History of Present Illness ED Provider: Ava Fink PA-C HPI narrative: Patient is a 50 year old assigned female at with a history of abnormal uterine bleeding and HTN for which she had an endometrial biopsy this morning by Dr. Glover presenting to the emergency department today with chest pain and palpitations. Patient states that she is bleeding vaginally still after her procedure this morning but she is here for the chest pain + palpitations. Patient denies any other complaints at this time. Related Data Home Medications ?Medication ?Instructions ?Recorded ?Confirmed cetirizine 10 mg tablet 10 mg PO DAILY 05/16/25 fluticasone propionate 50 intranasal 05/16/25 mcg/actuation nasal spray,suspension Allergies Allergy/AdvReac Type Severity Reaction Status Date / Time Iodinated Contrast Media (IV Allergy Intermediate Anaphylaxis Verified 05/16/25 10:11 Contrast Dye) Review of Systems 2 Constitutional: Constitutional: Reports as per HPI Eyes: Eyes: Reports as per HPI ENT: Reports as per HPI Cardiovascular: Cardiovascular: Reports as per HPI Respiratory: Respiratory: Reports as per HPI Gastrointestinal: Gastrointestinal: Reports as per HPI Genitourinary: Genitourinary: Reports as per HPI Musculoskeletal: Musculoskeletal: Reports as per HPI Integumentary/Breasts: Skin/Breast: Reports as per HPI Neurologic: Reports as per HPI Psychiatric: Psychiatric: Reports as per HPI Endocrine: Endocrine: Reports as per HPI Hematologic/Lymphatic: Hematologic/Lymphatic: Reports as per HPI Allergic/Immunologic: Allergic/Immunologic: Reports as per HPI PMF Past Medical History Attestation statement: The following information was validated with the patient. 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 [employer] Sexual orientation: Straight/Heterosexual Gender identity: Female Physical Exam ED Vital Signs: Vital Signs - 24 hr 05/16/25 10:11 05/16/25 11:00 05/16/25 12:05 Temperature 98.6 F 98 F 98 F Pulse Rate 86 79 79 Respiratory Rate 20 17 17 Blood Pressure 145/70 H 148/99 H 148/99 H Pulse Oximetry 98 97 97 Oxygen Delivery Method Room Air Room Air Room Air BMI result Body Mass Index 36.4 Const General: cooperative, no acute distress, alert and awake Nutritional Appearance: well nourished Orientation/consciousness: patient oriented x3 HENMT Head: Yes normal to inspection and Yes atraumatic Ears: hearing grossly normal bilaterally and external ears normal General nose exam: Normal external nose present, no nasal discharge noted and no epistaxis Face and sinus: Yes normal facial exam, No abrasion and No laceration Mouth: Normal oral and palatal mucosa present, no drooling and no muffled voice Eyes General: appearance normal, both eyes and all related structures Periorbital: periorbital findings normal Eyelids: Yes eyelids normal Conjunctivae: conjunctivae normal Pupils: Equal, round and reactive pupils present EOM: EOMs intact bilaterally Neck Neck: Yes normal visual inspection and Yes full ROM Resp Effort & Inspection: normal respiratory effort and able to speak in complete sentences Neuro General: patient oriented x3, moves all extremities and CN's II-XI intact bilaterally Cranial nerves: Yes Equal, round and reactive pupils present Cognition (Neuro): normal cognition Extrem General: Yes normal to inspection, Yes full ROM and Yes capillary refill normal Psych Appearance: grossly normal Mental Status: mental status grossly normal Affect: normal affect Attitude: cooperative Thought process: Normal thought process present Thought content: Normal thought content present Insight: Good insight present (Psych) Course Course Course Narrative: This is a Rapid Medical Examination (RME) performed by Alma Escobar PA-C in triage. Full HPI, ROS, assessment and treatment plan per primary provider in the Main ED. Hx: 50 yo F here w/ left sided chest pain x3 days. reports assoc palpitations. admits to vaginal bleeding x2 mo (since mar 26), seen at [facility]. had f/u w/ zerbe today for AUB. she has outpatient labs/ pelvic US ordered. had endometrial biopsy done in office today - sent for pathology. advised to f/u in two weeks for results. no hx anemia. PE/vitals: well appearing, no palor. Plan: labs, ekg Medications Administered Discontinued Medications Generic Name Dose Route Start Last Admin Trade Name Freq PRN Reason Stop Dose Admin Sodium Chloride 1,000 mls @ 999 mls/hr 05/16/25 11:00 05/16/25 12:06 Ns IV 05/16/25 12:00 Infused .Q1H1M CUBA Infusion Medical Decision Making Medical Decision Making [facility] Narrative: Patient is a 50 year old assigned female at with a history of abnormal uterine bleeding and HTN for which she had an endometrial biopsy this morning by Dr. Glover presenting to the emergency department today with chest pain and palpitations. Patient's physical exam was as noted in the physical exam portion of this note and unremarkable. Patient's blood work was unremarkable. Patient's EKG was unremarkable. Patient's chest x-ray showed no acute process. I explained my physical exam findings as well as all test results to the patient. I answered all questions asked by the patient. I stressed the importance of the patient taking her medication as directed (either prescribed or as the over the counter packaging recommends). I stressed the importance of the patient following up with her primary care provider, her OBGYN as scheduled, and the cardiology team for her new chest pain + palpiations. I stressed the importance of the patient returning to the emergency department immediately if her symptoms were to worsen or if she were to develop any dizziness, shortness of breath, difficulty breathing, chest pain, blurry vision, loss of vision, nausea, vomiting, abdominal pain, fever, chills, back pain, or any other complaints. Patient verbalized agreement and understanding with this treatment plan and discharge. Differential Diagnosis Differential Diagnoses: The differential diagnosis associated with the presentation includes AUB Atypical chest pain Palpitations NSTEMI STEMI Admission/Observation Consideration of admission/observation: Escalation of care including admission/observation considered Patient would have been admitted to the hospital had her work up had any findings where hospital admission was appropriate and her clinical presentation warranted hospital admission. Lab Data [facility] Lab Attestation statement: I reviewed the patient's lab results. My interpretation of these results are in the MDM Rationale portion of this note. 05/16/25 10:32 05/16/25 10:32 Labs: Lab Results 05/16/25 Range/Units 10:32 WBC 9.0 (4.8-10.8) X10*3/uL RBC 4.75 (4.20-5.50) X10*6/uL Hgb 13.1 (12.0-16.0) g/dl Hct 39.6 (37.0-47.0) % MCV 83.4 (80.0-98.0) fL MCH 27.6 (27.0-33.0) pg MCHC 33.1 (31.0-35.0) g/dl RDW 13.7 (11.0-16.0) % Plt Count 166 (160-400) X10*3/uL MPV 12.8 H (9.4-12.3) fL Immature Gran % (Auto) 0.2 (0.0-0.4) % Neut % (Auto) 54.7 (45-73) % Lymph % (Auto) 35.4 (20-40) % [place] % (Auto) 6.5 (2-11) % Eos % (Auto) 2.9 (0-4) % Baso % (Auto) 0.3 (0-2) % Lymph # (Auto) 3.2 (1.2-4.9) X10*3/uL [place] # (Auto) 0.6 (0.1-1.2) X10*3/uL Eos # (Auto) 0.3 (0.0-0.4) X10*3/uL Baso # (Auto) 0.0 (0.0-0.2) X10*3/uL Abs Immat Gran (auto) 0.02 (0.00-0.03) X10*3/uL Absolute Neuts (auto) 4.9 (2.0-8.3) x10*3/uL Absolute Nucleated RBC 0.000 (0.0-0.012) X10*3/uL Nucleated RBC % (auto) 0.0 (0.0-0.2) /100WBC Sodium 139 (135-145) mmol/L Potassium 3.7 (3.3-5.1) mmol/L Chloride 108 (96-108) mmol/L Carbon Dioxide 25 (22-29) mmol/L Anion Gap 10 L (12-20) BUN 15 (9-16) mg/dL Creatinine 0.71 (0.5-1.4) mg/dL Estim Creat Clear Calc 109.0 Estimated GFR > 60 Random Glucose 112 (60-115) mg/dL Calcium 9.2 (8.4-10.2) mg/dL Magnesium 1.8 (1.6-2.6) mg/dL Total Bilirubin 0.4 (0.0-1.0) mg/dL AST 26 (5-31) U/L ALT 33 H (0-31) U/L Alkaline Phosphatase 88 (39-117) U/L Troponin I High Sens < 2.7 (<3.5-17.0) ng/L NT-Pro-B Natriuret Pep 20.3 (<300) pg/mL Total Protein 7.7 (6.5-8.0) g/dL Albumin 4.5 (3.5-5.0) g/dL Blood Type O Positive Antibody Screen NEGATIVE Independent Interpretation I performed an independent interpretation of an: EKG and Plain X-Ray Interpretation: My interpretation is in agreement with the radiologist's impression of this imaging study. L Reason for Exam: chest pain EXAMINATION: XR CHEST CLINICAL INFORMATION: chest pain COMPARISON: None available. TECHNIQUE: 2 views of the chest were obtained. FINDINGS: The cardiac, hilar, and mediastinal contours are normal. The lungs are clear bilaterally. There is no pneumothorax or pleural effusion. There is no focal osseous or soft tissue abnormality. XR/XR chest 2V IMPRESSION: No active pulmonary disease. Electronically signed by: Philip Lyons MD 05/16/2025 11:29 AM EDT Dictated By: Philip Lyons MD Signed By: Electronically signed by Philip Lyons MD 05/16/25 1129 I independently interpreted this EKG and am in agreement with the below findings: Vent. Rate: 84 BPM Atrial Rate: 84 BPM P-R Int: 184 ms QRS Dur: 80 ms QT Int: 374 ms P-R-T Axes: 35 -13 55 degrees QTcB Int: 441 ms Normal sinus rhythm No previous ECGs available Electronically Signed By: BARNEY WILKERSON MD Dictated By: Barney Wilkerson MD Signed By: Electronically signed by Barney Wilkerson MD 05/16/25 1217 Radiology Impression Discussion of test interpretation with radiology: I have reviewed the radiologist's reading. External Record Review External record reviewed: Outpatient record (Dr. Glover, OBGYN, office visit / procedure note from this morning (05/16/2025).) Discharge Plan Discharge Clinical Impression: Abnormal uterine bleeding (AUB), Atypical chest pain, Palpitations Patient Disposition: Home, Self-Care Instructions: Chest Pain (DC), Heart Palpitations (DC), Abnormal (Dysfunctional) Uterine Bleeding (ED) Additional Instructions: Your work up today showed no evidence of an EMERGENT cause for you symptoms. Vaginal bleeding is normal after your uterine biopsy that you had done today. Follow up with the OBGYN as recommended and given your chest pain + palpitations, follow up with the salesforce specialist. IF you are prescribed home medications and/or you are taking over the counter medications at home- it is very important you continue to do so as prescribed / directed unless told otherwise. SI le recetan medicamentos y/o est? tomando medicamentos de venta ngozi, es muy importante que contin?e haci?ndolo seg?n lo recetado/indicado a menos que le indiquen lo contrario. Follow up with your primary care provider. Return to the emergency department immediately if your symptoms worsen or if you develop any dizziness, shortness of breath, difficulty breathing, chest pain, blurry vision, loss of vision, nausea, vomiting, abdominal pain, fever, chills, back pain, or any other complaints. Wanda?seguimiento?con godwin m?dico de atenci?n primaria. Acuda inmediatamente al servicio de urgencias si fidel s?ntomas empeoran o si presenta falta de aliento, dificultad para respirar, dolor tor?cico, mareos, aturdimiento, dolor de espalda, dolor abdominal, fiebre, escalofr?os o cualquier otro s?ntoma. Please see the information below about our Patient Portal. If you are not yet enrolled in the [facility] Patient Portal, you will receive an enrollment email invitation following your visit to any [facility] care setting. You may also self-enroll in the Patient Portal by visiting our website: [email or web address] The following information is required to access the Patient Portal: - Your [facility] Medical Record Number - Your personal home email address (must match what is in your electronic medical record, Registration staff can assist with this) - Name - Date of Capabilities of the Patient Portal: - Message some providers - View upcoming appointments - Access your health summary, medical history, and visit history - View current conditions and allergies - View procedure and lab results - View your medications, including guidelines, side effects, and precautions - Complete pre-appointment questionnaires requested by your provider - Ready summary reports of your office visits and procedures To access the Patient Portal Mobile Edie, follow these directions: - Search [employer] in the Edie Store or [employer] Store - Download the Edie - Search for [facility] - Enter your login/password Portal del paciente Si usted no esta inscrito en el portal de pacientes de [facility], recibira faraz invitacion de inscripcion despues de godwin visita al [facility] o al [facility] via correo electronico. Tambien puede inscribirse voluntariamente en el portal de pacientes visitando nuestra pagina web: [email or web address] La siguiente informacion sera requerida para acceder al portal: - Godwin jade de historia medica de [facility] - Godwin direccion de correo electronico personal - Nombre - Fecha de nacimiento Capacidades: Las siguientes capacidades estan disponibles en el portal de pacientes: - Enviar mensajes a algunos doctores - Verificar proximas citas - Acceso a godwin historial de henna, registro medico e historial de visitas - Clinton las condiciones actuales y alergias clinton procedimientos y resultados del laboratorio - Clinton fidel medicamentos, incluyendo las pautas - Efectos secundarios y precauciones - Completar o llenar formularios / cuestionarios de - Citas solicitadas por godwin doctor - Leer los resumenes de reportes medicos de fidel visitas y procedimientos Raina acceder a la aplicacion movil: - [employer] en la Edie Store o [employer] Store - Descargue la aplicacion - [facility] - Ingrese godwin nombre de usuario / Contrasena Prescriptions: No Action cetirizine 10 mg tablet 10 mg PO DAILY fluticasone propionate 50 mcg/actuation spray,suspension intranasal Referrals: [facility] Cardiovascular Specialists [Provider Group] Referral Note: Call to establish and follow up with the feed blender for chest pain + palpitations Nidhi Sharma NP [Primary Care Provider, Family Practice] Stand Alone Forms: Work/School Release Interventions: ED Discharge Assessment Last Done: 05/16/25 12:05 Discharge Date/Time: 05/16/25 12:06 Print Language: Yi
[2025-05-16 10:40] LABS: MANUAL DIFF FLAG NO
[2025-05-16 10:43] LABS: Hematocrit 39.6 % (37.0-47.0); Hemoglobin 13.1 g/dl (12.0-16.0); Imm Gran Abs Auto 0.02 X10*3/uL (0.00-0.03); Imm Gran Pct Auto 0.2 % (0.0-0.4); Lymphocytes Absolute Auto 3.2 X10*3/uL (1.2-4.9); Mean Corpuscular HGB Conc 33.1 g/dl (31.0-35.0); Mean Corpuscular Hemoglobin 27.6 pg (27.0-33.0); Mean Corpuscular Volume 83.4 fL (80.0-98.0); NRBC Abs Auto 0.000 X10*3/uL (0.0-0.012); NRBC Pct Auto 0.0 /100WBC (0.0-0.2); Platelet Count 166 X10*3/uL (160-400); Red Blood Count 4.75 X10*6/uL (4.20-5.50); White Blood Count 9.0 X10*3/uL (4.8-10.8)
[2025-05-16 10:56] LABS: Alanine Aminotransferase 33 U/L (0-31); Albumin Level 4.5 g/dL (3.5-5.0); Alkaline Phosphatase 88 U/L (39-117); Anion Gap 10 (12-20); Aspartate Amino Transferase 26 U/L (5-31); Blood Urea Nitrogen 15 mg/dL (9-16); Calcium 9.2 mg/dL (8.4-10.2); Carbon Dioxide 25 mmol/L (22-29); Chloride 108 mmol/L (96-108); Creatinine Clr Calc Pharmacy 109.0; Estimated Glomerular Filt Rate > 60; Magnesium 1.8 mg/dL (1.6-2.6); Potassium 3.7 mmol/L (3.3-5.1); Sodium 139 mmol/L (135-145); Total Protein 7.7 g/dL (6.5-8.0)
[2025-05-16 11:00] VITALS: BP 148/99; PULSE 79; RESP 17; TEMP 36.6; O2SAT 97
[2025-05-16 11:05] LABS: Troponin-I High Sensitivity < 2.7 ng/L (<3.5-17.0)
[2025-05-16 11:29] LABS: NT Pro B Type Natriuretic Pept 20.3 pg/mL (<300)
[2025-05-16 12:05] VITALS: BP 148/99; PULSE 79; RESP 17; TEMP 36.6; O2SAT 97
== END 2025-05-16 12:06 | disposition home or self-care (01) ==
PROVIDERS: Physician Assistant Medical; Emergency Provider Emergency Medicine
DX: N93.9 Abnormal uterine and vaginal bleeding, unspecified (principal); R07.89 Other chest pain; R00.2 Palpitations; I10 Essential (primary) hypertension; Z79.899 Other long term (current) drug therapy
CPT/HCPCS: 36415; 71046; 80053; 83735; 83880; 84484; 85025; 86850; 86900; 86901; 93005; 99284

== ENCOUNTER → 2025-05-16 10:00 | Outpatient (BNV) | payer OTHER, SELFPAY | PROVIDERS: Emergency Provider Emergency Medicine; Visit Provider Internal Medicine Cardiovascular Disease | DX: R94.31 Abnormal electrocardiogram [ECG] [EKG] (principal); R07.89 Other chest pain | CPT/HCPCS: 93010 ==

== ENCOUNTER → 2025-05-16 11:00 | Outpatient (BNV) | payer OTHER, SELFPAY | PROVIDERS: Emergency Provider Emergency Medicine; Visit Provider Radiology Diagnostic Radiology | DX: R07.9 Chest pain, unspecified (principal) | CPT/HCPCS: 71046 ==